=== PATIENT | male | born 1950 | race Caucasian/White ===

== ENCOUNTER 2017-11-30 00:44 | Inpatient (IN) | payer MEDICARE, OTHER ==
[2017-11-29 13:52] LABS: INR 0.97
[2017-11-30] VITALS (15 sets, daily range): BP systolic 103–156; BP diastolic 65–108
[~2017-11-30] VITALS: Ht 172.7 cm; Wt 117.0 kg
[~2017-11-30 00:44] MED LIST: LISI-355 PO
[2017-11-30] MEDS ORDERED: fentaNYL CITR 100 MCG/2 ML AMP ONE ×2 (08:57→12:14)
[2017-11-30] MEDS ORDERED: PROPOFOL EMUL(*) 10MG/ML 20 ML 20 ML ONE (08:58)
[2017-11-30] MEDS ORDERED: LIDOCAINE 2% IV 100 MG/5ML SYR ONE (08:58)
--- NOTE | 2017-11-30 09:32 | LEVENE H&P ---
DATE OF ADMISSION: November 30, 2017 IDENTIFICATION/CHIEF COMPLAINT The patient is a 67-year-old gentleman with chief complaint of left knee pain. HISTORY OF PRESENT ILLNESS The patient has a longstanding history of left knee arthritis progressively painful and debilitating, refractory to conservative care. Surgery is indicated to relieve pain after failure of nonoperative measures. PAST MEDICAL HISTORY Hypertension, controlled on medication. PAST SURGICAL HISTORY 1. Shoulder repair. 2. Tibial iggy and removal of iggy ALLERGIES No known drug allergies. CURRENT MEDICATIONS 1. Lisinopril/hydrochlorothiazide 20/25 one tablet p.o. every day. 2. Mobic 7.5 mg p.o. every day FAMILY HISTORY Notable for father with heart disease and mother with diabetes. SOCIAL HISTORY Negative for drug use. He drinks alcohol, about 12 beers per week. He denies abuse. He chews a can of tobacco about every two weeks. He denies smoking. REVIEW OF SYSTEMS Negative. PHYSICAL EXAMINATION GENERAL: This is a well-developed, well-nourished male who appears stated age. HEENT: Normocephalic, atraumatic. NECK: Supple. LUNGS: Clear.. HEART: Regular ABDOMEN: Soft. ORTHOPEDIC: Left knee has crepitus and effusion. He is stiff beyond range. Extensor function is intact. Ligament stability is good. Calves are nontender. Neurovascular function is intact. Radiographs demonstrate end-stage knee arthritis. 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 PLAN Per patient request, we are going to proceed with total knee replacement. The nature of the procedure, the risks, benefits, the anticipated rehabilitative course were reviewed. Risks include but are not limited to , major medical or anesthetic complication, infection, neurovascular injury, blood transfusion, stiffness, scarring, fracture, tendon rupture, instability, implant loosening, migration or failure, persistent or recurrent pain, need for additional surgery and other unforeseen. He understands and wishes to proceed. A signed permit is placed in the chart. No guarantees are given or implied. [facility]
[2017-11-30] MEDS ORDERED: TRANEXAMIC AC 1000 MG/10ML SDV 1,000 MG in DEXTROSE 5% 50 ML BAG 50 ML IV ONE (10:00)
[2017-11-30] MEDS ORDERED: cloNIDine EPIDUR INJ 100MCG/ML 40 MCG, ROPIVACAINE 0.5% 20 ML VIAL 25 ML, EPINEPHrine H... INJ ONE (10:00)
[2017-11-30] MEDS ORDERED: NORMOSOL R SOLN(*) 1000 ML BAG 1,000 ML IV PRN ×2 (10:00→13:25)
[2017-11-30] MEDS ORDERED: CELECOXIB 200 MG CAP PO ONE (10:00)
[2017-11-30] MEDS ORDERED: ACETAMINOPHEN 500 MG TAB PO ONE (10:00)
[2017-11-30] MEDS ORDERED: LIDOCAINE/SOD BICARB 8.4% SYR ID ONE (10:00)
[2017-11-30] MEDS ORDERED: ceFAZolin(*) 2GM/D5W 50ML 50 ML IVPB ONE (10:00)
[2017-11-30] MEDS ORDERED: PREGABALIN 150 MG CAPSULE PO ONE (10:00)
[2017-11-30] MEDS ORDERED: FAMOTIDINE 20 MG TAB PO ONE (10:00)
[2017-11-30] MEDS ORDERED: MIDAZOLAM 2 MG/2 ML VIAL IVP PRN (10:00)
[2017-11-30] MEDS ORDERED: ONDANSETRON 4 MG/2 ML VIAL ONE (11:18)
[2017-11-30] MEDS ORDERED: DEXAMETHASONE SOD PHOS 10MG/ML ONE (11:18)
[2017-11-30] MEDS ORDERED: KETAMINE HCL 200 MG/20 ML MDV ONE (11:36)
[2017-11-30] MEDS ORDERED: diphenhydrAMINE 25 MG CAP PO PRN (13:25)
[2017-11-30] MEDS ORDERED: diphenhydrAMINE 50 MG/ML VIAL IVP PRN (13:25)
[2017-11-30] MEDS ORDERED: PROMETHAZINE 25 MG/ML 1 ML AMP IVP PRN (13:25)
[2017-11-30] MEDS ORDERED: BENZOCAINE/MENTHOL 1 EACH LOZG PO PRN (13:25)
[2017-11-30] MEDS ORDERED: ACETAMINOPHEN 325 MG TAB PO PRN (13:25)
[2017-11-30] MEDS ORDERED: ZOLPIDEM TARTRATE 5 MG TAB PO PRN (13:25)
[2017-11-30] MEDS ORDERED: BISACODYL 10 MG SUPP PR PRN (13:25)
[2017-11-30] MEDS ORDERED: FLUSH 10 ML SYR IVP PRN (13:25)
[2017-11-30] MEDS ORDERED: MAGNESIUM HYDROXIDE* 30ML UDCP PO PRN (13:25)
--- NOTE | 2017-11-30 14:26 | RADIOLOGY IMAGING REPORT ---
FACILITY: [facility] PATIENT NAME: Agapito Hinojosa : 1950 MR: [id number] V: [id number] EXAM DATE: ORDERING PHYSICIAN: LUZMARIA CHING TECHNOLOGIST: Location: [facility] [place] Patient: Agapito Hinojosa : 1950 Visit/Account:[id number] Date of Sevice: 11/30/2017 KNEE LIMITED LEFT HISTORY: STATUS POST LEFT TOTAL KNEE CHECK PLACEMENT Additional history: None COMPARISON: None. FINDINGS: Status post left total knee arthroplasty. Orthopedic hardware appears well situated with normal knee alignment. Iatrogenic air seen within the joint. IMPRESSION: Left knee TKA unremarkable in appearance Report Dictated By: Tom Alanis MD at 11/30/2017 2:19 PM Report E-Signed By: Tom Alanis MD at 11/30/2017 2:22 PM WSN:[email or web address]
--- NOTE | 2017-11-30 14:28 | Hospitalist Consultation ---
History of Present Illness Requesting Physician Dr. Duron Reason for Consult Medical Management Chief Complaint s/p left knee replacement History of Present Illness He was admitted s/p left knee replacement. It is reported the surgery went well and without complication. History Problems: (1) Hypertension Status: Chronic Home Meds Reported Medications Lisinopril/Hydrochlorothiazide (LISINOPRIL-HCTZ 20-25 MG TAB) 1 Each Tablet, 1 EACH PO DAILY 11/22/17 Allergies: Coded Allergies: No Known Drug Allergies (Unverified , 11/22/17) Patient History: Diabetes mellitus MOTHER FH: heart disease FATHER Hx Smoking: Yes (40 yrs ago for a couple years) Smoking Status: Former Smoker Caffeine Intake: Coffee, Soda Caffeine/Cups Per Day: 1-2 Hx Alcohol Use: Yes Alcohol Used: Beer Hx Substance Use Disorder: No Social Drug Use: Never Review of Systems All Systems Reviewed/Normal: Yes, Except as Noted Exam Vital Signs Vital Signs Date Time Temp Pulse Resp B/P (MAP) Pulse Ox O2 Delivery O2 Flow Rate FiO2 11/30/17 14:00 96.9 74 16 103/65 (78) 96 Nasal Cannula 2.0 General Appearance: Alert, Awake, No Acute Distress, Afebrile Neuro: No Gross deficits Cardiovascular: Regular Rate and Rhythm Respiratory: No Respiratory Distress, Clear to Auscultation GI: Abd Soft and Non-Tender Psych: Alert & Oriented X3, Appropriate Mood & Affect Assessment and Plan Problems: (1) Status post left knee replacement Status: Acute Assessment & Plan: He will be placed on Aspirin for DVT prophylaxis. (2) Hypertension Status: Chronic Assessment & Plan: He is on chronic treatment with Lisinopril and Hydrochlorothiazide. The Lisinopril has been restarted with hold parameters. Venous Thromboembolism Antithrombotics Is Pt On Any Antithrombotics?: No Problem Qualifiers (1) Hypertension: Hypertension type: essential hypertension Qualified Codes: I10 - Essential (primary) hypertension MEKA HERNANDEZP Nov 30, 2017 14:28
[2017-11-30] MEDS: APAP/HYDROCODONE 325/7.5 TAB PO PRN ×2 (16:02→22:14)
[2017-11-30] MEDS: CELECOXIB 200 MG CAP PO SCH (16:15)
[2017-11-30] MEDS: ceFAZolin(*) 1 GM VIAL 1 GM in NS(*) 0.9% 100 ML ADDVANT BAG 100 ML IVPB SCH (19:36)
--- NOTE | 2017-11-30 20:50 | OPERATIVE REPORT 1 ---
EVENT DATE: November 30, 2017 SURGEON: Vivek Duron MD ANESTHESIOLOGIST: ANESTHESIA: [*] AGRONOMY LOCATION MANAGER: [*] PREOPERATIVE DIAGNOSIS [*] POSTOPERATIVE DIAGNOSIS [*] PROCEDURE PERFORMED [*] ESTIMATED BLOOD LOSS [*] DRAINS [*] SPECIMENS [*] COMPLICATIONS [*] TOURNIQUET TIME [*] IMPLANTS USED [*] DESCRIPTION OF PROCEDURE [*] MTDD
--- NOTE | 2017-11-30 21:09 | OPERATIVE REPORT 1 ---
EVENT DATE: November 30, 2017 SURGEON: Vivek Duron MD ANESTHESIOLOGIST: Michael Terry MD ANESTHESIA: General plus spinal. AUTOMATIC PUNCH PRESS OPERATOR: JACINTA Albarado PREOPERATIVE DIAGNOSIS Left knee degenerative joint disease. POSTOPERATIVE DIAGNOSIS Left knee degenerative joint disease PROCEDURE PERFORMED Left total knee arthroplasty. ESTIMATED BLOOD LOSS Minimal. DRAINS None. SPECIMENS None. COMPLICATIONS None apparent. TOURNIQUET TIME 51 minutes IMPLANTS USED Coral Triathlon knee system, a 5 left PS femur, 5 standard tibial baseplate, 36 mm universal, cemented, all-polyethylene patellar button, and a 13 mm PS tibial tray liner. Polyethylene is X3. INDICATIONS Agapito is a 67-year-old gentleman with intractable pain and disability related to end-stage knee arthritis. Surgery is indicated to relieve symptoms after failure of nonoperative measures. DESCRIPTION OF PROCEDURE Patient taken to the operating room and placed supine on the operating table. Spinal block was administered by the anesthesiologist. General anesthesia induced. Antibiotics and TXA are administered IV. Left lower extremity is prepped and draped in the usual sterile fashion for knee arthroplasty. Limb is exsanguinated with an Esmarch bandage. Tourniquet inflated to 250 mmHg. Midline longitudinal incision is made, carried down through the skin and subcutaneous tissue to the extensor mechanism. Full-thickness flaps are developed far enough medially to allow medial parapatellar arthrotomy be performed. Patella is everted. Knee is brought into flexed position. Fat pad, anterior horns of the menisci, and the cruciate ligaments are debrided. A gentle subperiosteal medial release is initiated in a titrated fashion to start to balance deformity in the knee. A step drill is used to enter the distal femur. A 10-inch long alignment guide is used to engage the isthmus, cut set for 5 degrees of valgus relative to the anatomic axis. 10 mm resection block is applied, pinned, cuts made with an oscillating saw. AP sizing guide is applied to the distal femoral cut, positioned for 3 degrees of external rotation relative to the posterior condyles. The size 5 is optimal without risk of notching. Four-in-one cutting block is applied. Anterior, posterior, posterior chamfer, and anterior chamfer cuts are made respectively. PS block is applied and centered. Medial and lateral bone is removed through the box. Trial femur has nice [id number] fit. Attention is turned to tibial preparation. The extramedullary guide is applied, positioned for varus, valgus, posterior slope, and rotation. This is set to resect 9 mm from the relatively intact lateral tibial plateau. It is dropped down a millimeter to ensure an adequate cut. Block is pinned. Extramedullary alignment check is made. Cuts made with an oscillating saw. Osteophytes and remnants of menisci are removed. Gaps are balanced and symmetric with no additional releases required at this time. Size 5 tibial baseplate provides optimum bony coverage without soft tissue overhang on the tibia. This is inserted along with the trial liner and the trial femur. Knee is brought to extension. The patella is taken from a starting thickness of 24 to a residual of 15 with a patellar clamp and oscillating saw. The 36 provides optimum bony coverage without soft tissue overhang. Lug holes are drilled. Patella tracks nicely with the no-touch technique. Final tibial preparation consists of assuring appropriate rotational and translational positioning of the component. Boss is reamed. Fin is punched. Surfaces are lavaged. Mixed methacrylate is made and components cemented in a single stage. Once the cement is fully polymerized, tourniquet is deflated. Hemostasis is assured. All loose debris is cleared from the joint with the pulse lavage. The 13 PS tibial tray liner fills up the gap ideally, providing optimal soft tissue tension and stability, allowing the knee to drop to full extension without hyperextension. Tray is lavaged and dried, and the actual liner is locked into the baseplate. Joint is reduced. Arthrotomy is closed in flexion with #2 Ethibond, subcutaneous tissue with 3-0 Vicryl, skin with surgical jaya. Xeroform and 4 x 4's applied as a dry, sterile dressing and compression wrap. Patient awakened from anesthesia and taken to the recovery room in stable condition having tolerated the procedure well. Plan is for standard TKA rehab protocol. [facility]
[2017-12-01 03:21] VITALS: BP 116/69
[2017-12-01] MEDS: ceFAZolin(*) 1 GM VIAL 1 GM in NS(*) 0.9% 100 ML ADDVANT BAG 100 ML IVPB SCH (03:26)
[2017-12-01] MEDS: APAP/HYDROCODONE 325/7.5 TAB PO PRN ×4 (06:39→21:50)
[2017-12-01 08:41] VITALS: BP 127/65
[2017-12-01] MEDS: LISINOPRIL 20 MG TAB PO SCH (09:00)
[2017-12-01] MEDS: CELECOXIB 200 MG CAP PO SCH ×2 (09:56→16:28)
[2017-12-01] MEDS: ASPIRIN 325 MG TAB PO SCH (09:56)
[2017-12-01] MEDS: DIAZEPAM 5 MG TAB PO PRN (10:00)
[2017-12-01 10:20] VITALS: Ht 172.7 cm; Wt 117.0 kg
--- NOTE | 2017-12-01 10:49 | Hospitalist Progress Note ---
Subjective Progress Notes Subjective He has no complaints this morning. He had no acute events overnight. Patient Complains of: Cardiovascular: No: Chest Pain Respiratory: No: Shortness of Breath Physical Exam Vital Signs Date Time Temp Pulse Resp B/P (MAP) Pulse Ox O2 Delivery O2 Flow Rate FiO2 12/01/17 03:21 98.2 78 16 116/69 (85) 92 Nasal Cannula 1.0 Intake and Output 12/01/17 01:00 Intake Total 2672 ml Output Total 50 ml Balance 2622 ml Intake Oral 672 ml IV Total 2000 ml Output Estimated Blood Loss 50 ml # Voids 1 General Appearance: Alert, Awake, No Acute Distress, Afebrile Neuro: No Gross deficits Cardiovascular: Regular Rate and Rhythm Respiratory: No Respiratory Distress, Clear to Auscultation GI: Soft and Non-Tender Extremities: Warm, Perfused; No Edema Psych: Alert & Oriented X3, Appropriate Mood & Affect Assessment and Plan Problems: (1) Status post left knee replacement Status: Acute Assessment & Plan: He will be placed on Aspirin for DVT prophylaxis. (2) Hypertension Status: Chronic Assessment & Plan: He is on chronic treatment with Lisinopril and Hydrochlorothiazide. The Lisinopril has been restarted with hold parameters. Exam Sepsis Risk: No Definite Risk Problem Qualifiers (1) Hypertension: Hypertension type: essential hypertension Qualified Codes: I10 - Essential (primary) hypertension MEKA HERNANDEZ DRAFTING ENGINEER Dec 01, 2017 10:49
[2017-12-01 13:32] VITALS: BP 134/89
[2017-12-01 20:08] VITALS: BP 127/73
[2017-12-02 01:29] VITALS: BP 147/87
[2017-12-02] MEDS: APAP/HYDROCODONE 325/7.5 TAB PO PRN ×3 (01:48→10:53)
[2017-12-02 04:28] VITALS: BP 149/85
[2017-12-02 07:13] VITALS: BP 125/78
[2017-12-02] MEDS ORDERED: HYDR-4308 PO (08:33)
[2017-12-02] MEDS: ASPIRIN 325 MG TAB PO SCH (08:41)
[2017-12-02] MEDS: CELECOXIB 200 MG CAP PO SCH (08:41)
[2017-12-02] MEDS: DIAZEPAM 5 MG TAB PO PRN (08:41)
[2017-12-02] MEDS: LISINOPRIL 20 MG TAB PO SCH (08:42)
[2017-12-02] MEDS ORDERED: ASPI-757 PO (09:19)
--- NOTE | 2017-12-02 09:21 | Hospitalist Progress Note ---
Subjective Progress Notes Subjective He has no complaints this morning. He had no acute events overnight. Patient Complains of: Cardiovascular: No: Chest Pain Respiratory: No: Shortness of Breath Physical Exam Vital Signs Date Time Temp Pulse Resp B/P (MAP) Pulse Ox O2 Delivery O2 Flow Rate FiO2 12/02/17 07:13 98.2 64 20 125/78 (94) 91 Room Air 12/02/17 04:28 1.0 Intake and Output 12/02/17 07:00 Intake Total 3260 ml Balance 3260 ml Intake Oral 3260 ml # Voids 5 General Appearance: Alert, Awake, No Acute Distress, Afebrile Neuro: No Gross deficits Cardiovascular: Regular Rate and Rhythm Respiratory: No Respiratory Distress, Clear to Auscultation GI: Soft and Non-Tender Extremities: Warm, Perfused; No Edema Psych: Alert & Oriented X3, Appropriate Mood & Affect Assessment and Plan Problems: (1) Status post left knee replacement Status: Acute Assessment & Plan: He will be placed on Aspirin for DVT prophylaxis. (2) Hypertension Status: Chronic Assessment & Plan: He is on chronic treatment with Lisinopril and Hydroch lorothiazide. Exam Sepsis Risk: No Definite Risk Problem Qualifiers (1) Hypertension: Hypertension type: essential hypertension Qualified Codes: I10 - Essential (primary) hypertension MEKA HERNANDEZ Dec 02, 2017 09:21
== END 2017-12-02 11:10 | disposition home or self-care (01) | DRG 470 ==
LOC: OR 00:44 → MED 13:54
PROVIDERS: ADMIT Orthopaedic Surgery; ATTEND Orthopaedic Surgery
PROC: 0SRD0J9 Replacement of Left Knee Joint with Synthetic Substitute, Cemented, Open Approach (ICD-10-PCS; principal; 2017-11-30 11:00)
DX: M17.12 Unilateral primary osteoarthritis, left knee (principal); I10 Essential (primary) hypertension; E66.9 Obesity, unspecified; Z68.39 Body mass index [BMI] 39.0-39.9, adult; Z87.891 Personal history of nicotine dependence
CPT/HCPCS: 36415; 85610; 86850; 86900; 86901; 97161; C1713; C1776; J0171; J0690; J0735; J1100; J1885; J2001; J2250; J2405; J2704; J2795; J3010; J3490; J7050; J7060